=== PATIENT | male | born 1980 | race Caucasian/White ===

== ENCOUNTER → 2016-12-27 | Outpatient (CLI) | payer BC ==
--- NOTE | 2016-12-27 16:01 | DIAGNOSTIC IMAGING REPORT ---
LEFT KNEE 2 VIEWS HISTORY: LEFT KNEE PAIN COMPARISON: None. FINDINGS: There is no fracture or dislocation. Soft tissues are unremarkable. No radiopaque foreign bodies. No knee effusion. IMPRESSION: No fractures. Electronically signed by: Uziel Calderon M.D. 12/27/2016 4:00 PM Dictated Date/Time: 12/27/2016 3:54 PM
== END | disposition home or self-care (01) ==
LOC: C.RAD1850 15:42
PROVIDERS: ATTEND Family Medicine
DX: M25.562 Pain in left knee (principal)

== ENCOUNTER → 2017-12-21 | Outpatient (CLI) | payer BC, OTHER ==
[~2017-12-21] MED LIST: CYCL5TAB PO
== END | disposition home or self-care (01) ==
LOC: C.RDSM 09:44
PROVIDERS: ATTEND Podiatrist
DX: M79.671 Pain in right foot (principal)

== ENCOUNTER 2017-12-24 19:03 | Emergency (ER) | payer OTHER ==
[~2017-12-24] VITALS: Ht 177.8 cm; Wt 81.0 kg
[2017-12-24 19:06] VITALS: TEMP 36.7; Ht 177.8 cm; Wt 81.0 kg
[2017-12-24] MEDS ORDERED: CYCLOBENZAPRINE HCL 5 MG TAB PO STA (19:19)
--- NOTE | 2017-12-24 20:07 | DIAGNOSTIC IMAGING REPORT ---
L-SPINE MIN 4 VIEWS ROUTINE CLINICAL HISTORY: Heavy lifting. Low back pain. COMPARISON: None FINDINGS: The bowel gas pattern is normal. Metallic densities projecting of the pelvis are likely from previous hernia repair. There is slight leftward curvature of the lumbar spine. Vertebral body heights are maintained. No acute fracture. Transitional vertebra at the lumbosacral junction is noted. For purposes of numbering on this exam this is designated as S1. The left aspect of S1 is lumbarized. There is minimal multilevel disc space narrowing. IMPRESSION: 1. No acute lumbar spine fracture or subluxation. 2. Mild multilevel degenerative disc disease and facet arthrosis. 3. Minimal leftward curvature of the lumbar spine. Electronically signed by: Dar Cortez M.D. 12/24/2017 8:06 PM Dictated Date/Time: 12/24/2017 8:04 PM
[2017-12-24] MEDS ORDERED: FLEXERIL HOME PACK 10 MG VIAL PO STA (20:47)
[2017-12-24] MEDS ORDERED: CYCL5TAB PO (20:49)
--- NOTE | 2017-12-24 20:49 | EMERGENCY ROOM VISIT NOTE ---
History First contact with patient: 19:09 Chief Complaint: BACK PAIN Stated Complaint: SEVERE BACK PAIN History of Present Illness The patient is a 37 year old male who presents to the Emergency Room via private vehicle with complaints of "severe back pain". The patient states that earlier today he was at the gym, and went to lift weights to adjust the rack. He notes that his hands were outstretched when he went to lift this and as he continued his exercise noted pain developing in the right low back region. He points to the paraspinous musculature of the lumbar spine. He rates the pain as a 9/10. He notes at this time progresses the area seems to tighten up and now his pain is excruciating. He notes difficulty with ambulation secondary to the pain. He denies any lower extremity weakness, bowel or bladder incontinence , numbness or tingling the genital region. No fevers or chills. No abdominal pain. He notes a history of inguinal hernia repair but notes there is no pain in that region. Review of Systems A complete 10-point Review of Systems was discussed with the patient, with pertinent positives and negatives listed in the History of Present Illness. All remaining Review of Systems questions can be considered negative unless otherwise specified. Past Medical/Surgical History Hernia repair Family History No pertinent. Social History Smoking Status: Never Smoker Patient is employed locally. Current/Historical Medications Scheduled PRN Cyclobenzaprine Hcl (Flexeril), 5-10 MG PO TID PRN for Muscle Spasms Physical Exam Vital Signs Date Time Temp Pulse Resp B/P (MAP) Pulse Ox O2 Delivery O2 Flow Rate FiO2 12/24/17 21:04 54 18 109/67 99 12/24/17 19:06 36.7 60 18 120/64 100 Room Air Physical Exam VITAL SIGNS - Vital signs and nursing notes were reviewed. Stable. Afebrile. GENERAL -37-year-old male appearing his stated age who is in no acute distress. Communicates well with provider and answers questions appropriately. SKIN - Without rashes. HEAD - NC/AT. EYES - Sclera anicteric. EARS - No deformities of external structures noted on gross examination bilaterally. NOSE - Midline and without cyanosis. No epistaxis or purulent drainage noted. Septum midline without deviation or septal hematoma noted. MOUTH/OROPHARYNX - Without perioral cyanosis. LUNGS - Chest wall symmetric without accessory muscle use, intercostals retractions, or central cyanosis. Normal vesicular breath sounds CTA B/L. No wheezes, rales, or rhonchi appreciated. CARDIAC - RRR with S1/S2. No murmur, rubs, or gallops appreciated. ABDOMEN - Abdominal contour normal without pulsations or visible masses. BS normoactive all four quadrants. No tenderness, palpable masses, hepatosplenomegaly, or ascites noted. No tenderness in the right inguinal region. MUSCULOSKELETAL: There is some reproducible tenderness noted in the right inferior paraspinous musculature of the lumbar spine. No bony deformity or pinpoint bony tenderness. EXTREMITIES - No clubbing or peripheral cyanosis. No pretibial edema present. He is neurovascularly intact distally. +5/5 strength noted in UE/LE bilaterally. NEUROLOGIC - Cranial nerves II through XII grossly intact. Sensory intact to light touch throughout. Patellar reflexes +2/4. PSYCH - A&O, and cooperates fully with examiner. Pt is very pleasant and interacts well with examiner. Medical Decision & Procedures ER Provider Diagnostic Interpretation: L-SPINE MIN 4 VIEWS ROUTINE CLINICAL HISTORY: Heavy lifting. Low back pain. COMPARISON: None FINDINGS: The bowel gas pattern is normal. Metallic densities projecting of the pelvis are likely from previous hernia repair. There is slight leftward curvature of the lumbar spine. Vertebral body heights are maintained. No acute fracture. Transitional vertebra at the lumbosacral junction is noted. For purposes of numbering on this exam this is designated as S1. The left aspect of S1 is lumbarized. There is minimal multilevel disc space narrowing. IMPRESSION: 1. No acute lumbar spine fracture or subluxation. 2. Mild multilevel degenerative disc disease and facet arthrosis. 3. Minimal leftward curvature of the lumbar spine. Electronically signed by: Dar Cortez M.D. 12/24/2017 8:06 PM Dictated Date/Time: 12/24/2017 8:04 PM Medications Administered Medications (Trade) Dose Ordered Sig/Eddie Route Start Time Stop Time Status Last Admin Dose Admin Cyclobenzaprine HCl (Flexeril Tab) 10 mg NOW STAT PO 12/24/17 19:19 12/24/17 19:20 DC 12/24/17 19:38 10 MG Cyclobenzaprine HCl (FLEXERIL 10MG Home Pack) 1 homepack UD STAT PO 12/24/17 20:47 12/24/17 20:48 DC 12/24/17 21:00 1 [facility] Medical Decision Patient was seen and evaluated as above. Review was performed of nursing notes and vital signs. After obtaining a thorough history and physical examination the above work up was performed. He presents to us today with low back pain. It is in the right inferior paraspinous musculature. This is consistent with that of likely musculoskeletal strain. He does have a history of inguinal hernia repair and I will note that he has no tenderness in the abdomen or overlying the inguinal region. His history and physical examination is consistent with that of the lumbar strain. X-ray was obtained to rule out any bone abnormality. Results as above. Degenerative change and findings discussed with the patient. He is to follow with the family doctor or return with worsening. He will be given Flexeril. He was given a dose of this here and was noted to be feeling better. He requested something to help with ambulation. I will give him a walker. He is to follow with the family doctor by calling them first thing tomorrow. No evidence of cauda equina syndrome. The patient was educated upon management, educated upon todays findings/results , educated upon symptoms in which to return, had questions answered prior to discharge, and was discharged home in good condition. In the evaluation and treatment of this patient the following differential diagnoses were entertained: Lumbar strain, sprain, fracture, dislocation, hernia , cauda equina syndrome, intra-abdominal injury, among others. Impression Primary Impression: Strain of lumbar region Departure Information Dispostion Home / Self-Care Condition GOOD Prescriptions Cyclobenzaprine Hcl (FLEXERIL) 5 Mg Tab 5-10 MG PO TID Y for Muscle Spasms, #15 TAB PRN Prov: Anshul Velazquez PA-C 12/24/17 Referrals Kory Marina M.D. (PCP) Patient Instructions My [facility] Additional Instructions You have been treated in the Emergency Department for Back Pain. You have received pain medicine in the emergency department which impairs your ability to operate a vehicle. It is illegal for you to drive after receiving these medicines. You have been prescribed Flexeril (cyclobenzaprine) 1-2 tabs orally, three times per day. Do NOT exceed 30 mg (6 tabs) per day. Take your first dose at bedtime as it can make you drowsy. Always take all medications as prescribed. For pain control, you can use the following zwiw-kyg-lrixqty medicines (if >12 yo): - Regular strength (325mg/tab) Tylenol (acetaminophen) 2 tabs every 4-6 hours as needed. Do not exceed 12 tablets in a 24 hour period. Avoid taking more than 3 grams (3000 mg) of Tylenol per day. This includes any other sources of acetaminophen you may take on a regular basis. - Regular strength (200 mg/tab) Advil (ibuprofen) 1-2 tabs every 4-6 hours as needed. Do not exceed a dose of 3200 mg per day. If this is an acute injury, ice can be applied to the area of pain for the first 3 days to help decrease pain and inflammation. After the first 3 days, a heating pad can be used over the area for continued soothing relief. You should schedule a follow-up appointment in 2-3 days with your Primary Care Provider for further evaluation and treatment of your back pain. Return to the Emergency Department if your current symptoms worsen despite treatment course outlined above, or if you develop any of the following symptoms : intractable pain despite aforementioned treatment course, loss of control of your bowel or bladder, numbness or tingling in your groin, or development of a fever.
[2017-12-24 21:04] VITALS: BP 109/67; PULSE 54; O2SAT 99
== END 2017-12-24 21:08 | disposition home or self-care (01) ==
LOC: C.EDB 19:04 → C.EDD 21:08
DX: S39.012A Strain of muscle, fascia and tendon of lower back, initial encounter (principal); Y93.B3 Activity, free weights; Y92.89 Other specified places as the place of occurrence of the external cause; Z98.890 Other specified postprocedural states